=== PATIENT | male | born 1945 | race Caucasian/White ===

== ENCOUNTER → 2016-10-13 | Outpatient (CLI) | payer OTHER ==
[~2016-10-13] MED LIST: ASPIRIN325 MG PO; Aspirin E.C. PO; Flonase BOTH NARES; GLUCOPHAGE850 MG PO; LIPITOR20 MG PO; Lanoxin,Digitek PO; NIACIN50 MG PO; OMEGA 3-6-91200 MG PO; PERCOCET 5/31 TABLET PO; TOPROL XL100 MG PO; TOPROL XL50 MG PO; Tradjenta PO; ZESTORETIC 20-1 EAC1 PO
== END | disposition home or self-care (01) ==
LOC: NUC 10:58
DX: C79.51 Secondary malignant neoplasm of bone (principal); R93.7 Abnormal findings on diagnostic imaging of other parts of musculoskeletal system
CPT/HCPCS: 78306; A9503

== ENCOUNTER 2016-11-02 07:53 | Emergency (ER) | payer OTHER ==
[~2016-11-02] VITALS: Ht 182.9 cm; Wt 93.0 kg
[2016-11-02 08:29] LABS: HEMATOCRIT 38.8 % (38.0-50.0); MCH 28.8 PG (29.0-34.0); MCHC 33.2 G/DL (30.0-36.0); MCV 86.6 FL (86-99); MEAN PLAT.VOLUME 10.7 uM^3 (9.0-12.4); PLATELET COUNT 144 K/uL (156-360); RBC DIS.WIDTH-CV 13.2 % (11.8-14.6); RBC DIS.WIDTH-SD 41.2 % (39-53); RED BLOOD COUNT 4.48 M/uL (4.00-5.50); WHITE BLOOD COUNT 5.6 K/uL (4.1-10.2)
[2016-11-02 08:48] LABS: ADD MIUA? YES; BILIRUBIN NEGATIVE; BLOOD MODERATE; COLOR BLOODY ((YELLOW)); GLUCOSE (STRIP) 50; KETONES NEGATIVE; LEUKOCYTES NEGATIVE; NITRITE NEGATIVE; PROTEIN (STRIP) 100; SPECIFIC GRAVITY 1.012 (1.000-1.030); UROBILINOGEN 0.2 MG/DL (0.2-1.0)
[2016-11-02 08:57] LABS: ALKALINE PHOSPHATASE 105 IU/L (3-129); ANION GAP 8 MEQ/L (2-14); CHLORIDE 106 MEQ/L (99-109); GFR ESTIMATE (CALCULATED) > 59 mL/min/; GLUCOSE 160 mg/dL (70-99); POTASSIUM 4.1 MEQ/L (3.7-5.4); SAMPLE HEMOLYSIS CHECK 0; SAMPLE ICTERIC CHECK 0; SAMPLE LIPEMIA CHECK 0; SODIUM 141 MEQ/L (136-147); UREA NITROGEN (BUN) 16 mg/dL (9-23)
[2016-11-02 08:58] LABS: RED BLOOD CELLS TNTC /HPF (0-5)
[2016-11-02 08:59] LABS: UCUL ADDED? YES
[2016-11-02] MEDS ORDERED: NORCO 5/3251 TABLET PO (09:28)
[2016-11-02] MEDS ORDERED: BICALUTAMIDE50 MG PO (09:28)
[2016-11-02 10:56] VITALS: BP 165/78
== END 2016-11-02 11:03 | disposition home or self-care (01) ==
LOC: EME 07:53
PROVIDERS: Nurse Practitioner Family
PROC: 0T9B70Z Drainage of Bladder with Drainage Device, Via Natural or Artificial Opening (ICD-10-PCS; principal; 2016-11-02)
DX: C61 Malignant neoplasm of prostate (principal); C79.51 Secondary malignant neoplasm of bone; R33.9 Retention of urine, unspecified; R31.9 Hematuria, unspecified; R35.0 Frequency of micturition; I10 Essential (primary) hypertension; E78.5 Hyperlipidemia, unspecified; E11.65 Type 2 diabetes mellitus with hyperglycemia; Z79.84 Long term (current) use of oral hypoglycemic drugs; Z79.82 Long term (current) use of aspirin
CPT/HCPCS: 80053; 81003; 85027; 87086; 99281; 99284

== ENCOUNTER 2016-11-02 21:32 | Emergency (ER) | payer OTHER ==
[~2016-11-02] VITALS: Ht 182.9 cm; Wt 92.0 kg
[~2016-11-02 21:32] MED LIST changes: +BICALUTAMIDE50 MG PO; +NORCO 5/3251 TABLET PO
[2016-11-03 00:17] VITALS: BP 171/79
== END 2016-11-03 00:18 | disposition home or self-care (01) ==
LOC: EME 21:32
PROC: 0T9B70Z Drainage of Bladder with Drainage Device, Via Natural or Artificial Opening (ICD-10-PCS; principal; 2016-11-02)
DX: T83.9XXA Unspecified complication of genitourinary prosthetic device, implant and graft, initial encounter (principal); R31.9 Hematuria, unspecified; Y84.6 Urinary catheterization as the cause of abnormal reaction of the patient, or of later complication, without mention of misadventure at the time of the procedure; N40.1 Benign prostatic hyperplasia with lower urinary tract symptoms; R33.8 Other retention of urine; I10 Essential (primary) hypertension; E78.5 Hyperlipidemia, unspecified; E11.9 Type 2 diabetes mellitus without complications; Z79.84 Long term (current) use of oral hypoglycemic drugs; Z95.5 Presence of coronary angioplasty implant and graft
CPT/HCPCS: 99281; 99283